=== PATIENT | female | born 2000 | race African-American/Black ===

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

== ENCOUNTER 2021-12-09 09:59 | Day surgery (SDC) | payer BC ==
[~2021-12-09 09:59] MED LIST: Lactated Ringers 1,000 ML IV SCH; Lidocaine 1%/Sod Bicarbonate in NS 8.4% 1 ML Syringe IDERM PRN; Sodium Chloride 0.9% 10 ML Syringe FLUSH PRN; Sodium Chloride 0.9% 10 ML Syringe FLUSH SCH
[2021-12-09] MEDS ORDERED: fentaNYL 100 MCG/2 ML SDV ONE (11:14)
[2021-12-09] MEDS ORDERED: Propofol 200 MG/20 ML SDV ONE ×2 (11:14→12:31)
[2021-12-09] MEDS ORDERED: Midazolam 1 MG/ML 2 ML SDV ONE (11:57)
== END 2021-12-09 13:36 | disposition home or self-care (01) ==
LOC: JD.SDS 09:59
PROVIDERS: ATTEND Surgery
DX: K52.9 Noninfective gastroenteritis and colitis, unspecified (principal); K44.9 Diaphragmatic hernia without obstruction or gangrene; R63.6 Underweight; K64.9 Unspecified hemorrhoids; E55.9 Vitamin D deficiency, unspecified; F17.210 Nicotine dependence, cigarettes, uncomplicated; Z87.19 Personal history of other diseases of the digestive system; Z79.899 Other long term (current) drug therapy
CPT/HCPCS: 00813; 81025; J2250; J2704; J3010; J7120

== ENCOUNTER 2022-06-04 07:55 | Day surgery (SDC) | payer BC ==
[2022-06-04] MEDS ORDERED: Lidocaine 1% with EPINEPHrine 1:100,000 20 ML MDV ONE (08:53)
[2022-06-04] MEDS ORDERED: Bupivacaine 0.5% 30 ML SDV ONE (08:53)
[2022-06-04] MEDS ORDERED: Midazolam 1 MG/ML 2 ML SDV ONE (09:29)
[2022-06-04] MEDS ORDERED: Propofol 200 MG/20 ML SDV ONE (09:29)
[2022-06-04] MEDS ORDERED: Lidocaine 1% 4 ML ONE (09:32)
[2022-06-04] MEDS ORDERED: ceFAZolin 2 GM Vial ONE (09:37)
== END 2022-06-04 10:33 | disposition home or self-care (01) ==
LOC: JD.SDS 07:55
PROVIDERS: ATTEND Surgery
DX: S00.85XA Superficial foreign body of other part of head, initial encounter (principal); L08.9 Local infection of the skin and subcutaneous tissue, unspecified; F17.210 Nicotine dependence, cigarettes, uncomplicated
CPT/HCPCS: 81025; J0690; J2250; J2704; J3490; J7120; 00300

== ENCOUNTER 2024-07-28 18:32 | Inpatient (IN) | payer BC ==
[2024-07-28] MEDS ORDERED: Lidocaine 1% 50 ML MDV INJECT PRN (19:28)
[2024-07-28] MEDS ORDERED: Sodium Chloride 0.9% 10 ML Syringe FLUSH PRN (19:28)
[2024-07-28 19:53] LABS: BASOPHILS PERCENT AUTO 0.3 % (0.0-1.0); EOSINOPHILS ABSOLUTE AUTO 0.1 K/mm3 (0.0-0.4); EOSINOPHILS PERCENT AUTO 1.1 % (0.0-6.0); HEMATOCRIT 35.2 % (37.0-47.0); HEMOGLOBIN 11.2 gm/dl (12.0-16.0); IMMATURE GRAN ABSOLUTE AUTO 0.08 K/mm3 (0.00-0.05); IMMATURE GRAN PERCENT AUTO 0.7 % (0.0-0.4); LYMPHOCYTES ABSOLUTE AUTO 1.9 K/mm3 (1.0-4.8); LYMPHOCYTES PERCENT AUTO 17.1 % (24.0-44.0); MEAN CORPUSCULAR HEMOGLOBIN 28.6 pg (28.0-32.0); MEAN CORPUSCULAR HGB CONC 31.8 g/dl (32.0-36.0); MEAN CORPUSCULAR VOLUME 89.8 fl (83.0-99.0); MEAN PLATELET VOLUME 10.5 fl (9.4-12.3); MONOCYTES ABSOLUTE AUTO 0.9 K/mm3 (0.0-0.8); MONOCYTES PERCENT AUTO 8.3 % (0.0-8.0); NEUTROPHILS ABSOLUTE AUTO 7.8 K/mm3 (1.8-7.7); NEUTROPHILS PERCENT AUTO 72.5 % (41.0-71.0); PLATELET COUNT,PLT 203 K/mm3 (150-400); RED BLOOD CELL COUNT 3.92 M/mm3 (4.10-5.30); WHITE BLOOD CELL COUNT,WBC 10.81 K/mm3 (3.9-11.3)
[2024-07-28] MEDS: Lactated Ringers 1,000 ML IV SCH (19:56)
[2024-07-28] MEDS: Penicillin G Potassium 5 MILLUNITS in Sodium Chloride 0.9% 100 ML IV SCH (19:58)
[2024-07-28] MEDS: Sodium Chloride 0.9% 10 ML Syringe FLUSH SCH (23:01)
[2024-07-29] MEDS ORDERED: Penicillin G Potassium 2.5 MILLUNITS in Sodium Chloride 0.9% 100 ML IV SCH
[2024-07-29] MEDS: Penicillin G Potassium 2.5 MILLUNITS in Sodium Chloride 0.9% 100 ML IV SCH (01:48)
[2024-07-29] MEDS: Oxytocin/0.9 % Sodium Chloride 30 UNIT/500 ML BAG IV SCH (03:56)
[2024-07-29] MEDS: Ondansetron 4 MG/2 ML SDV IVPUSH PRN (06:01)
[2024-07-29] MEDS: Nalbuphine 10 MG/1 ML Vial IVPUSH PRN (09:51)
[2024-07-29] MEDS ORDERED: diphenhydrAMINE 50 MG/ML SDV IVPUSH PRN (12:18)
[2024-07-29] MEDS ORDERED: ePHEDrine 50 MG/ML SDV IVPUSH PRN (12:18)
[2024-07-29] MEDS: Bupivacaine/fentaNYL/NS 100 ML Bag EPIDUR PRN (12:25)
[2024-07-29] MEDS ORDERED: Acetaminophen 325 MG Tab PO PRN (15:44)
[2024-07-29] MEDS ORDERED: Hydrocortisone Acetate 25 MG Supp RECTAL PRN (15:51)
[2024-07-29] MEDS: Ibuprofen 800 MG Tab PO SCH (16:30)
[2024-07-29] MEDS: Witch Hazel Medicated Pads 40/Jar TOP PRN (17:01)
[2024-07-29] MEDS: Benzocaine/Menthol 20%-0.5% Spray 78 GM Cannister TOP PRN (17:01)
[2024-07-29] MEDS: Docusate Sodium 100 MG Cap PO SCH (21:18)
[2024-07-31] MEDS: Ibuprofen 800 MG Tab PO SCH (08:33)
== END 2024-07-31 10:56 | disposition home or self-care (01) | DRG 560 ==
LOC: JD.OBCHECK 18:32 → JD.OB 18:41 → JD.OBCHECK 18:42 → JD.OB 18:42 → OBSVTOIN 07-29 15:14 → JD.OB 07-29 15:15
PROVIDERS: ADMIT Obstetrics & Gynecology; ATTEND Obstetrics & Gynecology
PROC: 3E0R3BZ Introduction of Anesthetic Agent into Spinal Canal, Percutaneous Approach (ICD-10-PCS; principal; 2024-07-29)
PROC: 3E033VJ Introduction of Other Hormone into Peripheral Vein, Percutaneous Approach (ICD-10-PCS; principal; 2024-07-29)
PROC: 10E0XZZ Delivery of Products of Conception, External Approach (ICD-10-PCS; principal; 2024-07-29)
DX: O99.824 Streptococcus B carrier state complicating childbirth (principal); O99.02 Anemia complicating childbirth; Z3A.38 38 weeks gestation of pregnancy; Z37.0 Single live birth; Z72.0 Tobacco use; Z79.899 Other long term (current) drug therapy
CPT/HCPCS: 01967; 36415; 51702; 59025; 59409; 84112; 85025; 86592; 86850; 86900; 86901; A9270-GY; J2300; J2405; J2540; J3490; J7120; J7999

== ENCOUNTER 2024-09-08 19:44 | Emergency (ER) | payer BC ==
[2024-09-08 20:13] LABS: APPEARANCE,URINE CLEAR (Clear); BILIRUBIN,URINE NEGATIVE (Negative); COLOR,URINE YELLOW (Yellow); GLUCOSE,URINE NEGATIVE (Negative); KETONES,URINE TRACE (Negative); LEUKOCYTE ESTERASE,URINE 1+ (Negative); NITRITE,URINE NEGATIVE (Negative); OCCULT BLOOD,URINE 1+ (Negative); PH,URINE 7.5 (5.0-8.0); PROTEIN,URINE 2+ (Negative); UROBILINOGEN,URINE 0.2 (0.2-1.0)
[2024-09-08 20:26] LABS: BACTERIA,URINE MODERATE /hpf (FEW); MUCUS,URINE MANY /hpf (FEW)
[2024-09-08 20:44] LABS: BASOPHILS PERCENT AUTO 0.4 % (0.0-1.0); EOSINOPHILS PERCENT AUTO 0.4 % (0.0-6.0); HEMATOCRIT 43.5 % (37.0-47.0); HEMOGLOBIN 13.8 gm/dl (12.0-16.0); IMMATURE GRAN ABSOLUTE AUTO 0.02 K/mm3 (0.00-0.05); IMMATURE GRAN PERCENT AUTO 0.3 % (0.0-0.4); LYMPHOCYTES PERCENT AUTO 12.6 % (24.0-44.0); MEAN CORPUSCULAR HEMOGLOBIN 27.8 pg (28.0-32.0); MEAN CORPUSCULAR HGB CONC 31.7 g/dl (32.0-36.0); MEAN CORPUSCULAR VOLUME 87.5 fl (83.0-99.0); MEAN PLATELET VOLUME 10.1 fl (9.4-12.3); MONOCYTES ABSOLUTE AUTO 0.2 K/mm3 (0.0-0.8); MONOCYTES PERCENT AUTO 1.9 % (0.0-8.0); NEUTROPHILS ABSOLUTE AUTO 6.6 K/mm3 (1.8-7.7); NEUTROPHILS PERCENT AUTO 84.4 % (41.0-71.0); PLATELET COUNT,PLT 238 K/mm3 (150-400); RED BLOOD CELL COUNT 4.97 M/mm3 (4.10-5.30); WHITE BLOOD CELL COUNT,WBC 7.76 K/mm3 (3.9-11.3)
[2024-09-08] MEDS ORDERED: Sodium Chloride 0.9% 10 ML Syringe FLUSH PRN (21:01)
[2024-09-08 21:07] LABS: A/G RATIO 1.1 (1-2); ALBUMIN 4.1 g/dl (3.4-5.0); ANION GAP 12.9 (5-15); BILIRUBIN TOTAL 0.6 mg/dL (0.2-1.0); BUN/CREATININE RATIO 16.3 (14-18); CALCIUM 9.4 mg/dL (8.5-10.1); CREATININE 0.8 mg/dL (0.55-1.02); EST CRCL DRUG DOSING (CG) 77.3 mL/min; POTASSIUM,K 3.9 mEq/L (3.5-5.1); PROTEIN TOTAL,TP 7.8 g/dl (6.4-8.2)
[2024-09-08] MEDS: Sodium Chloride 0.9% 1,000 ML IV ONE (21:10)
[2024-09-08] MEDS: Ondansetron 4 MG/2 ML SDV IVPUSH ONE (21:18)
[2024-09-08] MEDS: cefTRIAXone 1 GM Vial IVPUSH ONE (23:20)
[2024-09-08] MEDS: Ketorolac 15 MG/ML SDV IVPUSH ONE (23:20)
== END 2024-09-09 00:16 ==
LOC: JD.ED 19:44
DX: N13.2 Hydronephrosis with renal and ureteral calculous obstruction (principal); N39.0 Urinary tract infection, site not specified; Z86.16 Personal history of COVID-19
CPT/HCPCS: 36415; 74176; 80053; 81001; 83690; 84703; 85025; 87086; 96361; 96374; 96375; 99285; J0696; J1885; J2405; J7030